=== PATIENT | male | born 1955 | race Caucasian/White ===

== ENCOUNTER 2020-11-07 21:14 | Inpatient (IN) | payer MEDICARE, OTHER ==
--- NOTE | 2020-11-07 21:27 | ED ---
General Adult HPI - General Stated complaint: diabetic issue Time Seen by Provider: 11/07/20 21:17 Source: patient, RN notes reviewed, old records reviewed (Reviewed reports from [facility]) Mode of arrival: EMS Limitations: no limitations - History of Present Illness Initial comments: Patient is a pleasant 65-year-old male presenting to the emergency department secondary to hyperglycemia. Patient was seen at [facility] and diagnosed with DKA with hyponatremia. Patient states he has been fatigued for the past couple weeks. Polyuria and polydipsia. No history of diabetes. Patient has not seen a physician in a few years. - Related Data Allergies Allergy/AdvReac Type Severity Reaction Status Date / Time No Known Allergies Allergy Verified 11/07/20 21:52 Review of Systems ROS Statement: Those systems with pertinent positive or pertinent negative responses have been documented in the HPI. ROS Other: All systems not noted in ROS Statement are negative. Constitutional: Denies: fever Eyes: Denies: eye pain ENT: Denies: ear pain Respiratory: Denies: cough Cardiovascular: Denies: chest pain Endocrine: Reports: fatigue, polydipsia, polyuria Gastrointestinal: Denies: abdominal pain Genitourinary: Reports: frequency Musculoskeletal: Denies: back pain Skin: Denies: rash Neurological: Denies: weakness Past Medical History Past Medical History: Hypertension Past Surgical History: No Surgical Hx Reported Smoking Status: Current every day smoker General Exam Limitations: no limitations General appearance: alert, in no apparent distress Head exam: Present: normocephalic Eye exam: Present: normal appearance ENT exam: Present: mucous membranes dry Neck exam: Present: normal inspection Respiratory exam: Present: normal lung sounds bilaterally Cardiovascular Exam: Present: regular rate, normal rhythm GI/Abdominal exam: Present: soft. Absent: tenderness Extremities exam: Present: normal inspection Neurological exam: Present: alert Psychiatric exam: Present: normal affect, normal mood Skin exam: Present: normal color Course Vital Signs 11/07/20 11/07/20 21:48 21:59 Temperature 98.8 F Pulse Rate 87 Respiratory 19 Rate Blood Pressure 199/107 181/93 O2 Sat by Pulse 98 Oximetry Medical Decision Making - Medical Decision Making Case was discussed with Dr. rhodes who will admit covering hospital call and would like patient to go to ICU for DKA. Case also discussed with Dr. Mcgee. - Lab Data Result diagrams: 11/07/20 21:59 Lab Results 11/07/20 11/07/20 Range/Units 21:47 21:59 Sodium 134 L (137-145) mmol/L Potassium 4.4 (3.5-5.1) mmol/L Chloride 101 (98-107) mmol/L Carbon Dioxide 17 L (22-30) mmol/L Anion Gap 16 mmol/L BUN 9 (9-20) mg/dL Creatinine 0.38 L (0.66-1.25) mg/dL Est GFR (CKD-EPI)AfAm >90 (>60 ml/min/1.73 sqM) Est GFR (CKD-EPI)NonAf >90 (>60 ml/min/1.73 sqM) Glucose 348 H (74-99) mg/dL POC Glucose (mg/dL) 356 H (75-99) mg/dL POC Glu Blend Technician ID Rukhsana Ogden Calcium 8.6 (8.4-10.2) mg/dL Critical Care Time Critical Care Time: Yes Total Critical Care Time: 32 Disposition Clinical Impression: Diabetes mellitus, new onset, DKA (diabetic ketoacidoses) Disposition: ADMITTED IP TO THIS HOSP Is patient prescribed a controlled substance at d/c from ED?: No Referrals: None,Stated [Primary Care Provider] - 1-2 days
[2020-11-07] MEDS ORDERED: NALOXONE 0.4 MG/ML 1 ML VIAL IV PRN (21:28)
[2020-11-07 21:58] LABS: Glucose,Whole Blood 356 mg/dL (75-99)
[2020-11-07] MEDS ORDERED: LIDOCAINE URO-JET JELLY 2% 5 ML KIT URETHRAL ONE (22:07)
[2020-11-07] MEDS: SODIUM CHLORIDE 0.9% 1,000 ML IV SCH ×2 (22:12→22:19)
[2020-11-07] MEDS: INSULIN REGULAR 100 UNIT in SODIUM CHLORIDE 0.9% 100 ML IV SCH (22:17)
[2020-11-07 22:30] LABS: African American GFR (CKD) >90 (>60 ml/min/1.73 sqM); Anion Gap 16 mmol/L; Blood Urea Nitrogen 9 mg/dL (9-20); Calcium 8.6 mg/dL (8.4-10.2); Carbon Dioxide 17 mmol/L (22-30); Chloride 101 mmol/L (98-107); Glucose 348 mg/dL (74-99); Non-African American GFR(CKD) >90 (>60 ml/min/1.73 sqM); Potassium 4.4 mmol/L (3.5-5.1); Sodium 134 mmol/L (137-145)
[2020-11-07 23:32] LABS: Glucose,Whole Blood 275 mg/dL (75-99)
[2020-11-07 23:43] LABS: Glucose,Whole Blood 254 mg/dL (75-99)
--- NOTE | 2020-11-08 00:28 | P.HPIM ---
History of Present Illness H&P Date: 11/08/20 The patient is a 65-year-old male with a PMH of hypertension (noncompliant with medications) who was sent in from [facility] due to hyperglycemia. Patient reports that over the past several months, he has noticed an increased thirst along with urinary frequency. He reports that over the past few weeks however he felt overall ill and as though he had no energy. He notes that he last saw physician for years ago and had not been taking his medications for hypertension but was told that she had low blood glucose at that time. He reports an inability to fully and empty his bladder along with dysuria. Denied urinary discharge or penile lesions. He denied additional complaints. Denied chest pain, shortness of breath, fever, chills, cough, nausea, vomiting, diarrhea The patient's workup from [facility] was reviewed in detail with laboratory evaluation showing a UA with 3+ ketones, WBC count 12.5, hemoglobin 16.4, platelets 190, troponin 0.04, CPK 47, sodium 125, potassium 4.0, chloride 86, CO2 20, BUN 13, creatinine 0.7, glucose 667, AST 48, ALT 121, alk phos 256, with CT abdomen and pelvis without contrast unremarkable, CT head without acute intracranial abnormalities, and chest x-ray also unremarkable. Bladder scan in the emergency room revealed significant urinary retention with a Eduardo placed and subsequent 300 mL void with subsequent bladder scan showing 400 mL post void volume. Review of systems: Pertinent positives and negatives as discussed in HPI, a complete review of systems was performed and all other systems are negative. Physical examination: General: non toxic, no distress, appears at stated age, normal weight Derm: no unusual rashes/lesions no unusual ecchymoses, warm, dry Head: atraumatic, normocephalic, symmetric Eyes: EOMI, no lid lag, anicteric sclera, pupils equal round reactive to light ENT: Nose and ears atraumatic, no thrush, no pharyngeal erythema Neck: No thyromegaly, no cervical lymphadenopathy, trachea midline, supple Mouth: no lip lesion, mucus membranes moist Cardiovascular: S1S2 reg, no murmur, positive posterior tibial pulse bilateral, no edema, capillary refill less than 2 seconds Lungs: CTA bilateral, no rhonchi, no rales , no accessory muscle use Abdominal: soft, nontender to palpation, no guarding, no appreciable organomegaly, normal bowel sounds Ext: no gross muscle atrophy, muscle strength 5 out of 5 in all 4 extremities grossly, no contractures, Neuro: CN II-XI grossly intact, light touch intact all 4 extremities, finger to nose within normal limits, Psych: Alert, oriented, appropriate affect Assessment/plan Diabetic ketoacidosis -Continue with insulin infusion -IV fluids with normal saline -Monitor glucose levels every hour with BMP every 4 hour -Nothing by mouth for now -Admit to medical ICU -health educator Hyponatremia, likely pseudo-in setting of significant hyperglycemia -Continue with above DKA management -Monitor BMP Hypertension -Patient not on any medications at home -Start lisinopril and Norvasc for now Urinary retention -Possibly secondary to atonic bladder in setting of severe diabetes vs BPH -Continue with Eduardo for now -Obtain prostate US -UA negative for infection DVT prophylaxis -Heparin subq The patient is admitted with an anticipated greater than 2 midnight stay for evaluation of DKA CODE STATUS: Full Code Discussed with: Patient Anticipated discharge date: 2-[address]: Home A total of 40 minutes was spent on the care of this complex patient more than 50% of the time was spent in counseling and care coordination. Past Medical History Past Medical History: Hypertension History of Any Multi-Drug Resistant Organisms: None Reported Past Surgical History: No Surgical Hx Reported Smoking Status: Current every day smoker - Past Family History Mother History Unknown: Yes Family Medical History: Diabetes Mellitus Medications and Allergies Home Medications Medication Instructions Recorded Confirmed Type Acetaminophen [Tylenol] 500 mg PO ONCE PRN 11/07/20 11/07/20 History Allergies Allergy/AdvReac Type Severity Reaction Status Date / Time No Known Allergies Allergy Verified 11/07/20 22:41 Physical Exam Vitals: Vital Signs Temp Pulse Resp BP Pulse Ox 11/07/20 21:59 181/93 11/07/20 21:48 98.8 F 87 19 199/107 98 Intake and Output 11/07/20 11/07/20 11/08/20 14:59 22:59 06:59 Other: Weight 83.915 kg Results CBC & Chem 7: 11/07/20 21:59 Labs: Abnormal Lab Results - Last 24 Hours (Table) 11/07/20 11/07/20 Range/Units 21:47 21:59 Sodium 134 L (137-145) mmol/L Carbon Dioxide 17 L (22-30) mmol/L Creatinine 0.38 L (0.66-1.25) mg/dL Glucose 348 H (74-99) mg/dL POC Glucose (mg/dL) 356 H (75-99) mg/dL
[2020-11-08] MEDS: D5-0.45% NACL WITH KCL 20MEQ/L 1,000 ML IV SCH ×2 (00:44→09:16)
[2020-11-08] MEDS: amLODIPine 10 MG TAB PO SCH ×2 (00:44→21:17)
[2020-11-08] MEDS: lisinopriL 10 MG TAB PO SCH ×2 (00:45→08:09)
[2020-11-08] MEDS: ACETAMINOPHEN TAB 325 MG TAB PO PRN ×2 (00:45→21:35)
[2020-11-08 00:51] LABS: Glucose,Whole Blood 212 mg/dL (75-99)
[2020-11-08 01:52] LABS: Glucose,Whole Blood 143 mg/dL (75-99)
[2020-11-08] MEDS: SODIUM CHLORIDE 0.9% 1,000 ML IV SCH ×3 (01:53→09:16)
[2020-11-08 03:12] LABS: Glucose,Whole Blood 139 mg/dL (75-99)
[2020-11-08 03:14] LABS: African American GFR (CKD) >90 (>60 ml/min/1.73 sqM); Anion Gap 5 mmol/L; Blood Urea Nitrogen 8 mg/dL (9-20); Carbon Dioxide 26 mmol/L (22-30); Chloride 103 mmol/L (98-107); Glucose 155 mg/dL (74-99); Non-African American GFR(CKD) >90 (>60 ml/min/1.73 sqM); Phosphorus 1.9 mg/dL (2.5-4.5); Potassium 3.2 mmol/L (3.5-5.1); Sodium 134 mmol/L (137-145)
[2020-11-08] MEDS ORDERED: Potassium Replacement Protocol 1 EACH MISC MISCELLANE PRN (03:17)
[2020-11-08] MEDS: POTASSIUM CHLORIDE ER 20 MEQ TAB.ER PO SCH ×2 (03:27→03:32)
[2020-11-08] MEDS ORDERED: POTASSIUM CHLORIDE ER 20 MEQ TAB.ER PO STA (03:28)
[2020-11-08 04:17] LABS: Glucose,Whole Blood 141 mg/dL (75-99)
[2020-11-08 04:58] LABS: Glucose,Whole Blood 150 mg/dL (75-99)
[2020-11-08 06:09] LABS: Glucose,Whole Blood 208 mg/dL (75-99)
[2020-11-08 06:34] LABS: African American GFR (CKD) >90 (>60 ml/min/1.73 sqM); Anion Gap 7 mmol/L; Blood Urea Nitrogen 7 mg/dL (9-20); Carbon Dioxide 26 mmol/L (22-30); Chloride 101 mmol/L (98-107); Glucose 190 mg/dL (74-99); Non-African American GFR(CKD) >90 (>60 ml/min/1.73 sqM); Potassium 3.8 mmol/L (3.5-5.1); Sodium 134 mmol/L (137-145)
[2020-11-08] MEDS ORDERED: POTASSIUM CHLORIDE ER 20 MEQ TAB.ER PO SCH (07:00)
[2020-11-08 07:01] LABS: Glucose,Whole Blood 223 mg/dL (75-99)
[2020-11-08 08:05] LABS: Glucose,Whole Blood 247 mg/dL (75-99)
[2020-11-08] MEDS: HEPARIN SODIUM,PORCINE/PF 5,000 UNIT/0.5 ML SYRINGE SQ SCH ×3 (08:09→23:53)
[2020-11-08] MEDS ORDERED: LACTATED RINGERS 1,000 ML IV SCH (08:30)
[2020-11-08] MEDS: INSULIN ASPART (NovoLOG) 100 UNIT/ML VIAL SQ SCH ×4 (09:15→21:17)
[2020-11-08] MEDS: INSULIN REGULAR 100 UNIT in SODIUM CHLORIDE 0.9% 100 ML IV SCH (09:21)
--- NOTE | 2020-11-08 09:22 | P.PN ---
Subjective Progress Note Date: 11/08/20 No new complaints. Pt has diminished but present appetite. Good UOP with IVF. Sugars elevated, but gap closed, Electrolytes WNL. Insulin gtt to be transitioned to SQ insulin. Objective - Vital Signs Vital signs: Vital Signs Temp 97.6 F 11/08/20 08:00 Pulse 79 11/08/20 08:00 Resp 16 11/08/20 08:00 BP 115/65 11/08/20 08:00 Pulse Ox 96 11/08/20 08:00 Intake & Output 11/07/20 11/08/20 11/08/20 18:59 06:59 18:59 Intake Total 1139.834 300 Output Total 945 325 Balance 194.834 -25 Weight 85.7 kg Intake: IV 1100 300 D5-0.45% NaCl with KCl 1100 300 20Meq/l 1,000 ml @ 150 mls/hr IV .Q6H40M [facility] Rx# :[id number] Intake, IV Titration 39.834 Amount Insulin Regular 100 unit 39.834 In Sodium Chloride 0.9% 100 ml @ 0.1 UNITS/KG/HR 8.475 mls/hr IV .[id number] [facility] Rx#:[id number] Output: Urine 945 325 Other: Voiding Method Indwelling Catheter # Bowel Movements 1 - Exam Gen: awake, alert HEENT: normocephalic, atraumatic, good hearing acuity, moist mucous membranes Resp: good air exchange, breathing comfortably with no accessory muscle use CVS: good distal perfusion x 4, GI: soft, NTTP, ND : no SPT, no CVAT, aguirre catheter is present MSK: no pitting edema, no clubbing Neuro: non-focal, moving all extremities Psych: cooperative, euthymic mood - Labs CBC & Chem 7: 11/08/20 06:04 Labs: Abnormal Lab Results - Last 24 Hours (Table) 11/07/20 11/07/20 11/07/20 Range/Units 21:47 21:59 23:31 Sodium 134 L (137-145) mmol/L Potassium (3.5-5.1) mmol/L Carbon Dioxide 17 L (22-30) mmol/L BUN (9-20) mg/dL Creatinine 0.38 L (0.66-1.25) mg/dL Glucose 348 H (74-99) mg/dL POC Glucose (mg/dL) 356 H 275 H (75-99) mg/dL Phosphorus (2.5-4.5) mg/dL 11/07/20 11/08/20 11/08/20 Range/Units 23:41 00:50 01:48 Sodium 134 L (137-145) mmol/L Potassium 3.2 L (3.5-5.1) mmol/L Carbon Dioxide (22-30) mmol/L BUN 8 L (9-20) mg/dL Creatinine 0.38 L (0.66-1.25) mg/dL Glucose 155 H (74-99) mg/dL POC Glucose (mg/dL) 254 H 212 H (75-99) mg/dL Phosphorus 1.9 L (2.5-4.5) mg/dL 11/08/20 11/08/20 11/08/20 Range/Units 01:50 03:10 04:16 Sodium (137-145) mmol/L Potassium (3.5-5.1) mmol/L Carbon Dioxide (22-30) mmol/L BUN (9-20) mg/dL Creatinine (0.66-1.25) mg/dL Glucose (74-99) mg/dL POC Glucose (mg/dL) 143 H 139 H 141 H (75-99) mg/dL Phosphorus (2.5-4.5) mg/dL 11/08/20 11/08/20 11/08/20 Range/Units 04:56 06:04 06:07 Sodium 134 L (137-145) mmol/L Potassium (3.5-5.1) mmol/L Carbon Dioxide (22-30) mmol/L BUN 7 L (9-20) mg/dL Creatinine 0.46 L (0.66-1.25) mg/dL Glucose 190 H (74-99) mg/dL POC Glucose (mg/dL) 150 H 208 H (75-99) mg/dL Phosphorus (2.5-4.5) mg/dL 11/08/20 11/08/20 Range/Units 07:00 08:04 Sodium (137-145) mmol/L Potassium (3.5-5.1) mmol/L Carbon Dioxide (22-30) mmol/L BUN (9-20) mg/dL Creatinine (0.66-1.25) mg/dL Glucose (74-99) mg/dL POC Glucose (mg/dL) 223 H 247 H (75-99) mg/dL Phosphorus (2.5-4.5) mg/dL Assessment and Plan Assessment: Diabetic ketoacidosis -Insulin gtt --> SQ Levemir 15U daily + LD SSI AC/HS -IV fluids with LR @ 125cc/hr -Monitor glucose levels every hour with BMP every 4 hour -Advance to diabetic diet -Admit to medical ICU --> transfer to floor -environmental educator Hyponatremia, likely pseudo-in setting of significant hyperglycemia -Continue with above DKA management -Monitor BMP Hypertension -Patient not on any medications at home -Start lisinopril and Norvasc for now Urinary retention -Possibly secondary to atonic bladder in setting of severe diabetes vs BPH -Continue with Aguirre for now -Obtain prostate US -UA negative for infection DVT prophylaxis -Heparin subq The patient is admitted with an anticipated greater than 2 midnight stay for evaluation of DKA CODE STATUS: Full Code Discussed with: Patient Anticipated discharge date: 2-[address]: Home
[2020-11-08] MEDS ORDERED: INSULIN DETEMIR (LEVEMIR) 100 UNIT/ML SYR SQ SCH (09:30)
--- NOTE | 2020-11-08 09:44 | XR ---
EXAMINATION TYPE: XR chest 1V portable DATE OF EXAM: 11/08/2020 COMPARISON: NONE HISTORY: Dyspnea TECHNIQUE: Single frontal view of the chest is obtained. FINDINGS: There is no focal air space opacity, pleural effusion, or pneumothorax seen. The cardiac silhouette size is enlarged, there is some slight rotation. There are overlying leads. The aorta is dense. The osseous structures are intact. IMPRESSION: Cardiomegaly, appearance may be accentuated by technique, follow-up PA and lateral chest x-ray as indicated
--- NOTE | 2020-11-08 09:59 | P.CNPUL ---
History of Present Illness Consult date: 11/08/20 Chief complaint: hyperglycemia History of present illness: This is a 65-year-old male patient, transferred to us from [facility] because of hyperglycemia and the patient was found to have a mild component of anion gap metabolic acidosis, DKA. Blood sugars were elevated. The initial sugar was 667. The initial anion gap was at extreme. The patient had +3 ketones. White cell count was at 12.5. CAT scan of the abdomen and pelvis was unremarkable. CAT scan of the brain was negative. Chest x-ray was unremarkable. The patient was having some increased thirst and urinary frequency over the past several weeks. That this is a new onset diabetes mellitus. The patient does not take any diabetic medication outpatient basis. The patient was given IV fluids in the emergency and later on in the ICU. The patient was overall given a total of 2 L bolus.. At a later stage, the patient was switched to D5 half-normal and the patient was taken off the insulin drip and the patient was ordered to be given Levemir insulin 15 units in addition to a sliding scale coverage. Most recent blood work shows a anion gap of 7 and the serum bicarb is up to 26. Most recent blood sugar is at 247. COVID-19 testing was negative. Review of Systems Constitutional: Reports fatigue, Reports weakness Eyes: bilateral blurred vision, denies as per HPI, denies bulging eye, denies decreased vision, denies diplopia, denies discharge, denies dry eye, denies irritation, denies itching, denies pain, denies photophobia, denies loss of peripheral vision, denies loss of vision, denies tunnel vision/blind spots Ears: deny: decreased hearing, ear discharge, earache, tinnitus Ears, nose, mouth and throat: Reports as per HPI Breasts: absent: as per HPI, gynecomastia Cardiovascular: Reports as per HPI Respiratory: Reports as per HPI Genitourinary: Reports as per HPI Musculoskeletal: Reports as per HPI Musculoskeletal: absent: ankle pain, ankle stiffness, ankle swelling, as per HPI, elbow pain, elbow stiffness, elbow swelling, foot pain, foot stiffness, foot swelling, hand pain, hand stiffness, hand swelling, hip pain, hip stiffness, hip swelling, knee pain, knee stiffness, knee swelling, shoulder pain, shoulder stiffness, shoulder swelling, wrist pain, wrist stiffness, wrist swelling Integumentary: Reports as per HPI Neurological: Reports as per HPI Psychiatric: Reports as per HPI Endocrine: Reports fatigue, Reports high blood sugars, Reports polyuria Hematologic/Lymphatic: Reports as per HPI Allergic/Immunologic: Reports as per HPI Past Medical History Past Medical History: Hypertension History of Any Multi-Drug Resistant Organisms: None Reported Past Surgical History: No Surgical Hx Reported Past Anesthesia/Blood Transfusion Reactions: No Reported Reaction Smoking Status: Current every day smoker - Past Family History Mother History Unknown: Yes Family Medical History: Diabetes Mellitus Medications and Allergies Home Medications Medication Instructions Recorded Confirmed Type Acetaminophen [Tylenol] 500 mg PO ONCE PRN 11/07/20 11/07/20 History Allergies Allergy/AdvReac Type Severity Reaction Status Date / Time No Known Allergies Allergy Verified 11/07/20 22:41 Physical Exam Vitals: Vital Signs Temp Pulse Resp BP Pulse Ox 11/08/20 09:00 79 17 129/68 94 L 11/08/20 08:00 97.6 F 79 16 115/65 96 11/08/20 07:00 74 15 125/67 95 11/08/20 06:00 92 13 136/97 94 L 11/08/20 05:00 70 10 L 114/54 94 L 11/08/20 04:00 97.7 F 69 15 120/63 95 11/08/20 03:00 98.0 F 71 14 127/67 94 L 11/08/20 02:00 75 16 177/72 95 11/08/20 01:00 80 17 197/94 95 11/08/20 00:00 98 F 77 16 185/116 97 11/07/20 22:56 98.2 F 11/07/20 21:59 181/93 11/07/20 21:48 98.8 F 87 19 199/107 98 Intake and Output 11/07/20 11/08/20 11/08/20 22:59 06:59 14:59 Intake Total 1139.834 425 Output Total 945 475 Balance 194.834 -50 Intake: IV 1100 300 D5-0.45% NaCl with KCl 1100 300 20Meq/l 1,000 ml @ 150 mls/hr IV .Q6H40M [facility] Rx# :[id number] Intake, IV Titration 39.834 125 Amount Insulin Regular 100 unit 39.834 In Sodium Chloride 0.9% 100 ml @ 0.1 UNITS/KG/HR 8.475 mls/hr IV .[id number] [facility] Rx#:[id number] Lactated Ringers 1,000 ml 125 @ 125 mls/hr IV .Q8H [facility] Rx#:[id number] Output: Urine 945 475 Other: Voiding Method Indwelling Catheter # Bowel Movements 1 Weight 85.7 kg 85.7 kg General: non toxic, no distress, appears at stated age, normal weight Derm: no unusual rashes/lesions no unusual ecchymoses, warm, dry Head: atraumatic, normocephalic, symmetric Eyes: EOMI, no lid lag, anicteric sclera, pupils equal round reactive to light ENT: Nose and ears atraumatic, no thrush, no pharyngeal erythema Neck: No thyromegaly, no cervical lymphadenopathy, trachea midline, supple Mouth: no lip lesion, mucus membranes moist Cardiovascular: S1S2 reg, no murmur, positive posterior tibial pulse bilateral, no edema, capillary refill less than 2 seconds Lungs: CTA bilateral, no rhonchi, no rales , no accessory muscle use Abdominal: soft, nontender to palpation, no guarding, no appreciable orga nomegaly, normal bowel sounds Ext: no gross muscle atrophy, muscle strength 5 out of 5 in all 4 extremities grossly, no contractures, Neuro: CN II-XI grossly intact, light touch intact all 4 extremities, finger to nose within normal limits, Psych: Alert, oriented, appropriate affect Results - Laboratory Findings CBC and BMP: 11/08/20 06:04 Abnormal lab findings: Abnormal Labs 11/07/20 11/07/20 11/07/20 21:47 21:59 23:31 Sodium 134 L Potassium Carbon Dioxide 17 L BUN Creatinine 0.38 L Glucose 348 H POC Glucose (mg/dL) 356 H 275 H Phosphorus 11/07/20 11/08/20 11/08/20 23:41 00:50 01:48 Sodium 134 L Potassium 3.2 L Carbon Dioxide BUN 8 L Creatinine 0.38 L Glucose 155 H POC Glucose (mg/dL) 254 H 212 H Phosphorus 1.9 L 11/08/20 11/08/20 11/08/20 01:50 03:10 04:16 Sodium Potassium Carbon Dioxide BUN Creatinine Glucose POC Glucose (mg/dL) 143 H 139 H 141 H Phosphorus 11/08/20 11/08/20 11/08/20 04:56 06:04 06:07 Sodium 134 L Potassium Carbon Dioxide BUN 7 L Creatinine 0.46 L Glucose 190 H POC Glucose (mg/dL) 150 H 208 H Phosphorus 11/08/20 11/08/20 07:00 08:04 Sodium Potassium Carbon Dioxide BUN Creatinine Glucose POC Glucose (mg/dL) 223 H 247 H Phosphorus - Diagnostic Findings Chest x-ray: image reviewed Assessment and Plan Plan: 1 new-onset diabetes mellitus and the patient presented with DKA. Note that the patient had a anion gap metabolic acidosis and hyperglycemia and he was quite dehydrated. He was given fluids, insulin drip, and he was resuscitated and the patient has his anion gap closed at this point in time and her blood sugars under better control. 2 generalized fatigue secondary to above 3 symptoms of prostatism and difficulties in Eduardo catheter insertion. Currently has a Eduardo catheter in place 4 hypertension Plan Provide the patient some carb consistent diet this morning and assess his ability to tolerate a diet IV fluids can be cut down to KVO once this patient is able to achieve normal diet Check HbA1c Start the patient on long-acting insulin and the patient was started on Levemir 15 units daily in AM along with a SS coverage. Diabetic education will be needed. Check PSA Start the patient on Flomax 0.4 mg a keep the Eduardo in for another 24 hours Transferred out of the intensive care units
[2020-11-08 10:27] LABS: Basophils % (A) 0 %; Eosinophils # (A) 0.1 k/uL (0-0.7); Eosinophils % (A) 1 %; HCT 39.9 % (39.0-53.0); HGB 13.8 gm/dL (13.0-17.5); Lymphocytes # (A) 2.7 k/uL (1.0-4.8); Lymphocytes % (A) 27 %; MCHC 34.7 g/dL (31.0-37.0); MCV 92.3 fL (80.0-100.0); Mean Platelet Volume 10.6; Monocytes # (A) 0.6 k/uL (0-1.0); Monocytes % (A) 6 %; Neutrophils # (A) 6.3 k/uL (1.3-7.7); Neutrophils % (A) 64 %; Platelet Count 158 k/uL (150-450); RBC 4.32 m/uL (4.30-5.90); RDW 13.4 % (11.5-15.5); WBC 9.8 k/uL (3.8-10.6)
[2020-11-08 11:13] VITALS: BMI 25.6
[2020-11-08 11:21] LABS: Glucose,Whole Blood 270 mg/dL (75-99)
--- NOTE | 2020-11-08 15:44 | US ---
EXAMINATION TYPE: US prostate transrectal DATE OF EXAM: 11/08/2020 COMPARISON: NONE CLINICAL HISTORY: urinary retention. Pt in ICU on insulin drip/ pt states feeling like he cannot empt y his bladder properly/ pt currently cathed This examination was performed using the transrectal probe. This exam was performed portable, pt's ro om very bright, very difficult to visualize ultrasound screen. EXAM MEASUREMENTS: Gland Size: 4.5 x 3.5 x 5.4 cm Volume: 43.3 ml Predicted PSA: 5.2 Actual PSA (if available):Not available Heterogeneous prostate, no evidence of lesion within peripheral zone/ urinary cath visualized IMPRESSION: 1. Heterogeneous prostate gland with no discrete lesion seen on the sonographic study. A prostate MRI would provide increased sensitivity. Predicted PSA = volume x 0.12 ng/ml Calculated Volume = 0.5236 x L x W x H
[2020-11-08 16:43] LABS: Glucose,Whole Blood 540 mg/dL (75-99)
[2020-11-08 17:14] LABS: Hemoglobin A1C 16.4 % (4.0-6.0)
[2020-11-08 17:51] LABS: African American GFR (CKD) >90 (>60 ml/min/1.73 sqM); Anion Gap 6 mmol/L; Blood Urea Nitrogen 6 mg/dL (9-20); Calcium 8.8 mg/dL (8.4-10.2); Carbon Dioxide 25 mmol/L (22-30); Chloride 98 mmol/L (98-107); Glucose 317 mg/dL (74-99); Non-African American GFR(CKD) >90 (>60 ml/min/1.73 sqM); Potassium 4.1 mmol/L (3.5-5.1); Sodium 129 mmol/L (137-145)
[2020-11-08] MEDS ORDERED: INSULIN ASPART (NovoLOG) 100 UNIT/ML VIAL SQ ONE (18:00)
[2020-11-08] MEDS ORDERED: INSULIN DETEMIR (LEVEMIR) 100 UNIT/ML SYR SQ STA (18:01)
[2020-11-08 21:06] LABS: Glucose,Whole Blood 339 mg/dL (75-99)
[2020-11-08] MEDS: TAMSULOSIN 0.4 MG CAP.ER.24H PO SCH (21:17)
[2020-11-09 05:23] LABS: ALT 89 U/L (4-49); AST 53 U/L (17-59); African American GFR (CKD) >90 (>60 ml/min/1.73 sqM); Albumin 3.3 g/dL (3.5-5.0); Alkaline Phosphatase 223 U/L (38-126); Anion Gap 5 mmol/L; Blood Urea Nitrogen 10 mg/dL (9-20); Calcium 8.6 mg/dL (8.4-10.2); Carbon Dioxide 27 mmol/L (22-30); Chloride 100 mmol/L (98-107); Glucose 277 mg/dL (74-99); Non-African American GFR(CKD) >90 (>60 ml/min/1.73 sqM); Potassium 3.8 mmol/L (3.5-5.1); Sodium 132 mmol/L (137-145); Total Bilirubin 0.7 mg/dL (0.2-1.3); Total Protein 5.9 g/dL (6.3-8.2)
[2020-11-09 06:56] LABS: Glucose,Whole Blood 306 mg/dL (75-99)
[2020-11-09] MEDS: INSULIN ASPART (NovoLOG) 100 UNIT/ML VIAL SQ SCH ×4 (06:58→22:14)
[2020-11-09] MEDS: INSULIN DETEMIR (LEVEMIR) 100 UNIT/ML SYR SQ SCH (06:58)
--- NOTE | 2020-11-09 10:02 | P.PN ---
Subjective Progress Note Date: 11/09/20 Principal diagnosis: DKA This is a 65-year-old male patient, transferred to us from [facility] because of hyperglycemia and the patient was found to have a mild component of anion gap metabolic acidosis, DKA. Blood sugars were elevated. The initial sugar was 667. The initial anion gap was at extreme. The patient had +3 ketones. White cell count was at 12.5. CAT scan of the abdomen and pelvis was unremarkable. CAT scan of the brain was negative. Chest x-ray was unremarkable. The patient was having some increased thirst and urinary frequency over the past several weeks. That this is a new onset diabetes mellitus. The patient does not take any diabetic medication outpatient basis. The patient was given IV fluids in the emergency and later on in the ICU. The patient was overall given a total of 2 L bolus.. At a later stage, the patient was switched to D5 half-normal and the patient was taken off the insulin drip and the patient was ordered to be given Levemir insulin 15 units in addition to a sliding scale coverage. Most recent blood work shows a anion gap of 7 and the serum bicarb is up to 26. Most recent blood sugar is at 247. COVID-19 testing was negative. The patient is seen today 11/09/2020 in follow-up in the intensive care unit. He is currently resting comfortably in bed. Awake and alert in no acute distress. No shortness of breath, cough or congestion. Maintaining O2 saturations in the upper 90s on room air. He's been afebrile. Hemodynamically stable. Sodium 132. Potassium 3.8. Chloride 100. Bicarb 27. Anion gap 5. Creatinine 0.49. Blood glucose 277. AST 53. ALT 89. His Levemir has been adjusted to 25 units daily along with sliding scale. His appetite is improving. No IV fluids. Eduardo catheter remains in place for urinary retention. He was initiated on Flomax. Ultrasound reveals a heterogenous prostate gland with no discrete lesion. PSA level pending. Objective - Vital Signs Vital signs: Vital Signs Temp 98.0 F 11/09/20 02:00 Pulse 76 11/08/20 16:00 Resp 16 11/09/20 02:00 BP 137/68 11/09/20 02:00 Pulse Ox 97 11/09/20 02:00 Intake & Output 11/08/20 11/09/20 11/09/20 18:59 06:59 18:59 Intake Total 1150 Output Total 1345 650 Balance -195 -650 Weight 85.7 kg Intake: IV 300 D5-0.45% NaCl with KCl 300 20Meq/l 1,000 ml @ 150 mls/hr IV .Q6H40M BRE Rx# :[id number] Intake, IV Titration 500 Amount Lactated Ringers 1,000 ml 500 @ 125 mls/hr IV .Q8H BRE Rx#:[id number] Oral 350 Output: Urine 1345 650 Other: Voiding Method Indwelling Catheter Indwelling Catheter - Exam GENERAL EXAM: Alert, active, pleasant 65-year-old gentleman, on room air, comfortable in no apparent distress. HEAD: Normocephalic. EYES: Normal reaction of pupils, equal size. NOSE: Clear with pink turbinates. THROAT: No erythema or exudates. NECK: No masses, no JVD. CHEST: No chest wall deformity. LUNGS: Equal air entry with no crackles, wheeze, rhonchi or dullness. CVS: S1 and S2 normal with no audible murmur, regular rhythm. ABDOMEN: No hepatosplenomegaly, normal bowel sounds, no guarding or rigidity. SPINE: No scoliosis or deformity SKIN: No rashes CENTRAL NERVOUS SYSTEM: No focal deficits, tone is normal in all 4 extremities. EXTREMITIES: There is no peripheral edema. No clubbing, no cyanosis. Peripheral pulses are intact. - Labs CBC & Chem 7: 11/08/20 07:06 11/09/20 04:31 Labs: Abnormal Lab Results - Last 24 Hours (Table) 11/08/20 11/08/20 11/08/20 Range/Units 07:06 11:19 16:42 Sodium (137-145) mmol/L BUN (9-20) mg/dL Creatinine (0.66-1.25) mg/dL Glucose (74-99) mg/dL POC Glucose (mg/dL) 270 H 540 H (75-99) mg/dL Hemoglobin A1c 16.4 H (4.0-6.0) % ALT (4-49) U/L Alkaline Phosphatase (38-126) U/L Total Protein (6.3-8.2) g/dL Albumin (3.5-5.0) g/dL 11/08/20 11/08/20 11/09/20 Range/Units 17:27 21:04 04:31 Sodium 129 L 132 L (137-145) mmol/L BUN 6 L (9-20) mg/dL Creatinine 0.38 L 0.49 L (0.66-1.25) mg/dL Glucose 317 H 277 H (74-99) mg/dL POC Glucose (mg/dL) 339 H (75-99) mg/dL Hemoglobin A1c (4.0-6.0) % ALT 89 H (4-49) U/L Alkaline Phosphatase 223 H (38-126) U/L Total Protein 5.9 L (6.3-8.2) g/dL Albumin 3.3 L (3.5-5.0) g/dL 11/09/20 Range/Units 06:54 Sodium (137-145) mmol/L BUN (9-20) mg/dL Creatinine (0.66-1.25) mg/dL Glucose (74-99) mg/dL POC Glucose (mg/dL) 306 H (75-99) mg/dL Hemoglobin A1c (4.0-6.0) % ALT (4-49) U/L Alkaline Phosphatase (38-126) U/L Total Protein (6.3-8.2) g/dL Albumin (3.5-5.0) g/dL Assessment and Plan Assessment: 1 New-onset diabetes mellitus and the patient presented with DKA. Note that the patient had a anion gap metabolic acidosis and hyperglycemia and he was quite dehydrated. He was given fluids, insulin drip, and he was resuscitated and the patient has his anion gap closed at this point in time and her blood sugars under better control. 2 Generalized fatigue secondary to above 3 Symptoms of prostatism and difficulties in Eduardo catheter insertion. Currently has a Eduardo catheter in place. Ultrasound revealed heterogenous prostate gland. PSA pending 4 Hypertension Plan: The patient was seen and evaluated by Dr. Mcgee Eduardo catheter will be removed Bladder scan if necessary Continue Flomax Levemir has been adjusted Education regarding diabetes mellitus Follow-up with a primary care provider within 1 week postdischarge I, the cosigning physician, performed a history & physical examination of the patient. Lungs sounds are clear. Maintaining good O2 saturations in the 90s on room air. I discussed the assessment and plan of care with my nurse practitioner, Sneha Healy. I attest to the above note as dictated by her.
[2020-11-09] MEDS: HEPARIN SODIUM,PORCINE/PF 5,000 UNIT/0.5 ML SYRINGE SQ SCH ×2 (10:08→16:34)
[2020-11-09] MEDS: lisinopriL 10 MG TAB PO SCH (10:08)
--- NOTE | 2020-11-09 11:37 | P.PN ---
Subjective Progress Note Date: 11/09/20 Pts sugars still elevated, but gap closed. Tolerating diet. No further complaints at this time. Objective - Vital Signs Vital signs: Vital Signs Temp 98.0 F 11/09/20 02:00 Pulse 76 11/08/20 16:00 Resp 16 11/09/20 02:00 BP 137/68 11/09/20 02:00 Pulse Ox 97 11/09/20 02:00 Intake & Output 11/08/20 11/09/20 11/09/20 18:59 06:59 18:59 Intake Total 1150 Output Total 1345 650 Balance -195 -650 Weight 85.7 kg Intake: IV 300 D5-0.45% NaCl with KCl 300 20Meq/l 1,000 ml @ 150 mls/hr IV .Q6H40M BRE Rx# :[id number] Intake, IV Titration 500 Amount Lactated Ringers 1,000 ml 500 @ 125 mls/hr IV .Q8H BRE Rx#:[id number] Oral 350 Output: Urine 1345 650 Other: Voiding Method Indwelling Catheter Indwelling Catheter - Exam Gen: awake, alert HEENT: normocephalic, atraumatic, good hearing acuity, moist mucous membranes Resp: good air exchange, breathing comfortably with no accessory muscle use CVS: good distal perfusion x 4, GI: soft, NTTP, ND : no SPT, no CVAT, aguirre catheter is present MSK: no pitting edema, no clubbing Neuro: non-focal, moving all extremities Psych: cooperative, euthymic mood - Labs CBC & Chem 7: 11/08/20 07:06 11/09/20 04:31 Labs: Abnormal Lab Results - Last 24 Hours (Table) 11/08/20 11/08/20 11/08/20 Range/Units 07:06 16:42 17:27 Sodium 129 L (137-145) mmol/L BUN 6 L (9-20) mg/dL Creatinine 0.38 L (0.66-1.25) mg/dL Glucose 317 H (74-99) mg/dL POC Glucose (mg/dL) 540 H (75-99) mg/dL Hemoglobin A1c 16.4 H (4.0-6.0) % ALT (4-49) U/L Alkaline Phosphatase (38-126) U/L Total Protein (6.3-8.2) g/dL Albumin (3.5-5.0) g/dL 11/08/20 11/09/20 11/09/20 Range/Units 21:04 04:31 06:54 Sodium 132 L (137-145) mmol/L BUN (9-20) mg/dL Creatinine 0.49 L (0.66-1.25) mg/dL Glucose 277 H (74-99) mg/dL POC Glucose (mg/dL) 339 H 306 H (75-99) mg/dL Hemoglobin A1c (4.0-6.0) % ALT 89 H (4-49) U/L Alkaline Phosphatase 223 H (38-126) U/L Total Protein 5.9 L (6.3-8.2) g/dL Albumin 3.3 L (3.5-5.0) g/dL Assessment and Plan Assessment: Diabetic ketoacidosis -Insulin gtt --> SQ Levemir 25U daily + LD SSI AC/HS -IV fluids with LR @ 125cc/hr --> PO intake -Monitor glucose levels q6 hours -Advance to diabetic diet -Admit to medical ICU --> transfer to floor -informatics educator Hyponatremia, improving -Continue with above management -Monitor BMP Hypertension -Patient not on any medications at home -Start lisinopril and Norvasc for now Urinary retention -Possibly secondary to atonic bladder in setting of severe diabetes vs BPH -d/c aguirre, trial of void -tamsulosin -Obtain prostate US -UA negative for infection DVT prophylaxis -Heparin subq The patient is admitted with an anticipated greater than 2 midnight stay for evaluation of DKA CODE STATUS: Full Code Discussed with: Patient Anticipated discharge date: 2-[address]: Home
[2020-11-09 12:39] LABS: Glucose,Whole Blood 346 mg/dL (75-99)
[2020-11-09] MEDS: ACETAMINOPHEN TAB 325 MG TAB PO PRN (12:45)
[2020-11-09 17:18] LABS: Glucose,Whole Blood 243 mg/dL (75-99)
[2020-11-09 19:58] LABS: Glucose,Whole Blood 362 mg/dL (75-99)
[2020-11-09 22:13] LABS: Glucose,Whole Blood 380 mg/dL (75-99)
[2020-11-09] MEDS: amLODIPine 10 MG TAB PO SCH (22:14)
[2020-11-09] MEDS: TAMSULOSIN 0.4 MG CAP.ER.24H PO SCH (22:14)
[2020-11-10] MEDS: HEPARIN SODIUM,PORCINE/PF 5,000 UNIT/0.5 ML SYRINGE SQ SCH ×2 (00:14→08:16)
[2020-11-10 07:49] LABS: Glucose,Whole Blood 283 mg/dL (75-99)
[2020-11-10] MEDS: INSULIN ASPART (NovoLOG) 100 UNIT/ML VIAL SQ SCH ×2 (08:15→13:11)
[2020-11-10] MEDS: INSULIN DETEMIR (LEVEMIR) 100 UNIT/ML SYR SQ SCH (08:16)
[2020-11-10] MEDS: lisinopriL 10 MG TAB PO SCH (11:14)
--- NOTE | 2020-11-10 12:23 | P.PN ---
Subjective Progress Note Date: 11/10/20 Principal diagnosis: DKA This is a 65-year-old male patient, transferred to us from [facility] because of hyperglycemia and the patient was found to have a mild component of anion gap metabolic acidosis, DKA. Blood sugars were elevated. The initial sugar was 667. The initial anion gap was at extreme. The patient had +3 ketones. White cell count was at 12.5. CAT scan of the abdomen and pelvis was unremarkable. CAT scan of the brain was negative. Chest x-ray was unremarkable. The patient was having some increased thirst and urinary frequency over the past several weeks. That this is a new onset diabetes mellitus. The patient does not take any diabetic medication outpatient basis. The patient was given IV fluids in the emergency and later on in the ICU. The patient was overall given a total of 2 L bolus.. At a later stage, the patient was switched to D5 half-normal and the patient was taken off the insulin drip and the patient was ordered to be given Levemir insulin 15 units in addition to a sliding scale coverage. Most recent blood work shows a anion gap of 7 and the serum bicarb is up to 26. Most recent blood sugar is at 247. COVID-19 testing was negative. The patient is seen today 11/09/2020 in follow-up in the intensive care unit. He is currently resting comfortably in bed. Awake and alert in no acute distress. No shortness of breath, cough or congestion. Maintaining O2 saturations in the upper 90s on room air. He's been afebrile. Hemodynamically stable. Sodium 132. Potassium 3.8. Chloride 100. Bicarb 27. Anion gap 5. Creatinine 0.49. Blood glucose 277. AST 53. ALT 89. His Levemir has been adjusted to 25 units daily along with sliding scale. His appetite is improving. No IV fluids. Eduardo catheter remains in place for urinary retention. He was initiated on Flomax. Ultrasound reveals a heterogenous prostate gland with no discrete lesion. PSA level pending. The patient is seen today 11/10/2020 in follow-up on the regular medical floor. He is currently sitting up in bed. Awake and alert in no acute distress. Maintaining O2 saturation of 99% on room air. Afebrile. Hemodynamically stable . Glucose 283. Receiving diabetes education currently. Remains on Levemir. Voiding well. Remains on Flomax. Objective - Vital Signs Vital signs: Vital Signs Temp 97.9 F 11/10/20 05:32 Pulse 81 11/10/20 05:32 Resp 18 11/10/20 05:32 BP 143/77 11/10/20 05:32 Pulse Ox 99 11/10/20 05:32 Intake & Output 11/09/20 11/10/20 11/10/20 18:59 06:59 18:59 Intake Total 350 Output Total 500 200 Balance -500 350 -200 Intake: Oral 350 Output: Urine 500 200 Other: Voiding Method Indwelling Catheter Toilet Toilet Urinal Urinal # Voids 2 - Exam GENERAL EXAM: Alert, active, pleasant 65-year-old gentleman, on room air, comfortable in no apparent distress. HEAD: Normocephalic. EYES: Normal reaction of pupils, equal size. NOSE: Clear with pink turbinates. THROAT: No erythema or exudates. NECK: No masses, no JVD. CHEST: No chest wall deformity. LUNGS: Equal air entry with no crackles, wheeze, rhonchi or dullness. CVS: S1 and S2 normal with no audible murmur, regular rhythm. ABDOMEN: No hepatosplenomegaly, normal bowel sounds, no guarding or rigidity. SPINE: No scoliosis or deformity SKIN: No rashes CENTRAL NERVOUS SYSTEM: No focal deficits, tone is normal in all 4 extremities. EXTREMITIES: There is no peripheral edema. No clubbing, no cyanosis. Peripheral pulses are intact. - Labs CBC & Chem 7: 11/08/20 07:06 11/09/20 04:31 Labs: Abnormal Lab Results - Last 24 Hours (Table) 11/09/20 11/09/20 11/09/20 Range/Units 12:37 17:16 19:55 POC Glucose (mg/dL) 346 H 243 H 362 H (75-99) mg/dL 11/09/20 11/10/20 Range/Units 22:11 07:45 POC Glucose (mg/dL) 380 H 283 H (75-99) mg/dL Assessment and Plan Assessment: 1 New-onset diabetes mellitus and the patient presented with DKA. Note that the patient had a anion gap metabolic acidosis and hyperglycemia and he was quite dehydrated. He was given fluids, insulin drip, and he was resuscitated and the patient has his anion gap closed at this point in time and her blood sugars under better control. 2 Generalized fatigue secondary to above 3 Symptoms of prostatism and difficulties in Eduardo catheter insertion. Currently has a Eduardo catheter in place. Ultrasound revealed heterogenous prostate gland. PSA pending 4 Hypertension Plan: The patient was seen and evaluated by Dr. Mcgee Voiding without IDC Continue Flomax Levemir has been adjusted Educated regarding diabetes mellitus Follow-up with a primary care provider within 1 week postdischarge I, the cosigning physician, performed a history & physical examination of the patient. Lungs sounds are clear. Maintaining good O2 saturations in the 90s on room air. I discussed the assessment and plan of care with my nurse practitioner, Sneha Healy. I attest to the above note as dictated by her.
[2020-11-10 12:26] LABS: Glucose,Whole Blood 316 mg/dL (75-99)
[2020-11-10 13:16] VITALS: BP 133/75; PULSE 78; RESP 16; TEMP 98
--- NOTE | 2020-11-10 15:28 | P.DS ---
Providers Date of admission: 11/07/20 21:28 Expected date of discharge: 11/10/20 Attending physician: Alysha Granados MD Consults: 11/07/20 21:53 Consult Physician Urgent Consulting Provider: Khai Mcgee Consult Reason/Comments: critical care Do you want consulting provider notified?: Already Contacted Primary care physician: Stated None Hospital Course: HPI: The patient is a 65-year-old male with a PMH of hypertension (noncompliant with medications) who was sent in from [facility] due to hyperglycemia. Patient reports that over the past several months, he has noticed an increased thirst along with urinary frequency. He reports that over the past few weeks however he felt overall ill and as though he had no energy. He notes that he last saw physician for years ago and had not been taking his medications for hypertension but was told that she had low blood glucose at that time. He reports an inability to fully and empty his bladder along with dysuria. Denied urinary discharge or penile lesions. He denied additional complaints. Denied chest pain, shortness of breath, fever, chills, cough, nausea, vomiting, diar alonso The patient's workup from [facility] was reviewed in detail with laboratory evaluation showing a UA with 3+ ketones, WBC count 12.5, hemoglobin 16.4, platelets 190, troponin 0.04, CPK 47, sodium 125, potassium 4.0, chloride 86, CO2 20, BUN 13, creatinine 0.7, glucose 667, AST 48, ALT 121, alk phos 256, with CT abdomen and pelvis without contrast unremarkable, CT head without acute intracranial abnormalities, and chest x-ray also unremarkable. Bladder scan in the emergency room revealed significant urinary retention with a Aguirre placed and subsequent 300 mL void with subsequent bladder scan showing 400 mL post void volume. Hospital Course: Diabetic ketoacidosis Patient was initially admitted to the ICU, started on insulin drip and IV fluids. Electrolytes were repleted appropriately. Patient was transitioned to subcutaneous long-acting insulin as well as pre-meal short-acting. Patient did well subsequently on the floor. He was seen by asthma educator who walked him through the use of his diabetic supplies. It was determined that he was too high risk to be using vials given his limited eyesight as well as arthritis in his hands. Therefore, he was prescribed insulin injector pens on discharge. He'll follow up with the PCP for further titration of insulin as well as routine diabetic screening. I spent 45 minutes coordinating this complex discharge Assessment: Gen: awake, alert HEENT: normocephalic, atraumatic, good hearing acuity, moist mucous membranes Resp: good air exchange, breathing comfortably with no accessory muscle use CVS: good distal perfusion x 4, GI: soft, NTTP, ND : no SPT, no CVAT, aguirre catheter is present MSK: no pitting edema, no clubbing Neuro: non-focal, moving all extremities Psych: cooperative, euthymic mood Patient Condition at Discharge: Good Plan - Discharge Summary Discharge Rx Participant: No New Discharge Prescriptions: New lisinopriL [Zestril] 10 mg PO DAILY #30 tab Insulin Regular, Human [Novolin R Flexpen] 8 units SQ ACHS #3 pen Tamsulosin [Flomax] 0.4 mg PO HS #30 cap.er.24h Insulin Glargine,Hum.rec.anlog [Lantus Solostar] 25 unit SQ DAILY #3 pen amLODIPine [Norvasc] 10 mg PO HS #30 tab [place], Insulin Disposable [Bd Ultra-Fine Pen Needle 4mm 32g] 1 needle SQ DIRECTED #150 needle Continue Acetaminophen [Tylenol] 500 mg PO ONCE PRN PRN Reason: Fever And/ Or Pain Discharge Medication List Acetaminophen [Tylenol] 500 mg PO ONCE PRN 11/07/20 [History] Insulin Glargine,Hum.rec.anlog [Lantus Solostar] 25 unit SQ DAILY #3 pen 11/10/20 [Rx] Insulin Regular, Human [Novolin R Flexpen] 8 units SQ ACHS #3 pen 11/10/20 [Rx] [place], Insulin Disposable [Bd Ultra-Fine Pen Needle 4mm 32g] 1 needle SQ DIRECTED #150 needle 11/10/20 [Rx] Tamsulosin [Flomax] 0.4 mg PO HS #30 cap.er.24h 11/10/20 [Rx] amLODIPine [Norvasc] 10 mg PO HS #30 tab 11/10/20 [Rx] lisinopriL [Zestril] 10 mg PO DAILY #30 tab 11/10/20 [Rx] Follow up Appointment(s)/Referral(s): None,Stated [Primary Care Provider] - 1-2 days Patient Instructions/Handouts: Lisinopril (By mouth), Amlodipine (By mouth), Tamsulosin (By mouth), Insulin Aspart Protamine/Insulin Aspart (By injection), Insulin Glargine (By injection), Type 2 Diabetes in Adults: New Diagnosis (DC), Meal Planning with Diabetes Exchanges (DC), Hypertension (DC) Activity/Diet/Wound Care/Special Instructions: [employer] will be providing your blood sugar testing supplies. They can be reached at [phone] or [place]. Patient has chosen a PCP through [facility]. located at [address] [phone] . Appointment made for 1130am on SaturdayNovember 16 with Pao Horn. [facility] - Discharge Disposition: HOME SELF-CARE
== END 2020-11-10 16:34 | disposition home or self-care (01) | DRG 638 ==
LOC: EC 21:14 → 2SICU 21:28 → 5NMEDONC 11-09 17:11
PROVIDERS: ADMIT Internal Medicine; ATTEND Internal Medicine
DX: E11.10 Type 2 diabetes mellitus with ketoacidosis without coma (principal); E87.1 Hypo-osmolality and hyponatremia; E86.0 Dehydration; F17.200 Nicotine dependence, unspecified, uncomplicated; I10 Essential (primary) hypertension; M19.90 Unspecified osteoarthritis, unspecified site; Z20.822 Contact with and (suspected) exposure to COVID-19; Z83.3 Family history of diabetes mellitus; Z91.14 Patient's other noncompliance with medication regimen; R53.83 Other fatigue; R33.9 Retention of urine, unspecified
CPT/HCPCS: 36415; 71045; 76872; 80048; 80051; 80053; 82009; 82565; 82947; 83036; 84100; 84153; 84520; 85025; 87635; 93005; 99285